=== PATIENT | male | born 1995 | race Two or more races ===

== ENCOUNTER 2019-11-03 20:09 | Inpatient (IN) | payer MEDICAID ==
[~2019-11-03] VITALS: Ht 162.6 cm; Wt 89.2 kg
[2019-11-03 22:31] LABS: EOSINOPHILS % (AUTO) 1.4 % (1.0-6.0); LYMPHOCYTES # (AUTO) 3.6 K/uL (1.0-4.8); MONOCYTES % (AUTO) 6.6 % (2.0-9.0); RED CELL DISTRIBUTION WIDTH 13.4 % (11.5-14.5)
[2019-11-03 22:37] LABS: ANION GAP 9 mmol/L (8-16); BASOPHILS % (AUTO) 0.5 % (0.0-2.0); CARBON DIOXIDE 27 mmol/L (22-29); CHLORIDE 105 mmol/L (98-107); CREATININE 0.96 mg/dL (0.60-1.30); GLOMERULAR FILTR. RATE CALC > 60 mL/min (>60); GLUCOSE,RANDOM 127 mg/dL (70-110); HEMOGLOBIN 15.9 g/dL (13.5-17.5); LYMPHOCYTES % (AUTO) 36.3 % (22.0-44.0); MEAN CORPUSCULAR HEMOGLOBIN 28.6 pg (26.0-34.0); MEAN CORPUSCULAR HGB CONC 33.8 G/dL (31.0-37.0); MEAN CORPUSCULAR VOLUME 85 fL (80-100); MONOCYTES # (AUTO) 0.7 K/uL (0.1-1.0); NEUTROPHILS # (AUTO) 5.5 K/uL (1.8-7.7); NEUTROPHILS % (AUTO) 55.2 % (40.0-70.0); PLATELET COUNT (AUTO) 313 K/uL (150-450); POTASSIUM 3.6 mmol/L (3.5-5.1); RED BLOOD CELL COUNT(AUTO) 5.55 MIL/uL (4.50-5.90); SODIUM SERUM 141 mmol/L (136-145); UREA NITROGEN, BLOOD 11 mg/dL (7-18)
[2019-11-03 22:43] LABS: ALANINE AMINOTRANSFERASE 25 U/L (12-78); ALBUMIN 4.4 g/dL (3.4-5.0); ALKALINE PHOSPHATASE 69 U/L (46-116); ASPARTATE AMINOTRANSFERASE 16 U/L (15-37); BILIRUBIN,TOTAL 0.4 mg/dL (0.1-1.0); TOTAL PROTEIN, SERUM 7.5 g/dL (6.4-8.2)
[2019-11-04] MEDS ORDERED: HALOPERIDOL 5 MG TABLET PO PRN (00:15)
[2019-11-04] MEDS ORDERED: ZOLPIDEM TARTRATE 10 MG TABLET PO PRN (00:15)
[2019-11-04] MEDS ORDERED: LORazepam 2 MG TABLET PO PRN (00:15)
[2019-11-04] MEDS ORDERED: NICOTINE 14 MG/24 HOUR PATCH TD PRN (09:00)
[2019-11-04] MEDS ORDERED: IBUPROFEN 400 MG TABLET PO PRN (09:00)
[2019-11-04] MEDS ORDERED: ALBUTEROL SULFATE HFA 90 MCG/PUFF 8 GM INHALER IH PRN (09:00)
[2019-11-04] MEDS ORDERED: ONDANSETRON HCL 4 MG TABLET PO PRN (09:00)
[2019-11-04] MEDS ORDERED: MAG HYDROX/AL HYDROX/SIMETH ES 30 ML SUSPENSION UDCUP PO PRN (09:00)
[2019-11-04] MEDS ORDERED: PETROLATUM,WHITE 28 GM JELLY TP PRN (09:00)
[2019-11-04] MEDS ORDERED: GuaiFENesin/D-METHORPHAN [SUGAR-FREE] 200-20MG/10 ML SYRUP UDCUP PO PRN (09:00)
[2019-11-04] MEDS ORDERED: MAGNESIUM HYDROXIDE SUSPENSION 30 ML UDCUP PO PRN (09:00)
[2019-11-04] MEDS ORDERED: ACETAMINOPHEN 325 MG TABLET PO PRN (09:00)
[2019-11-04] MEDS ORDERED: DOCUSATE SODIUM 100 MG CAPSULE PO PRN (09:00)
[2019-11-04] MEDS ORDERED: CloNIDine HCL 0.1 MG TABLET PO PRN (09:00)
[2019-11-04] MEDS ORDERED: LOPERAMIDE HCL 2 MG CAPSULE PO PRN (09:00)
[2019-11-04 09:28] LABS: APPEARANCE,URINE CLOUDY (CLEAR); BILIRUBIN,URINE NEGATIVE (NEGATIVE); GLUCOSE, URINE (UA) NEGATIVE (NEGATIVE); KETONES,URINE NEGATIVE (NEGATIVE); LEUKOCYTE ESTERASE ,URINE NEGATIVE (NEGATIVE); NITRATE,URINE NEGATIVE (NEGATIVE); OCCULT BLOOD,URINE NEGATIVE (NEGATIVE); PH,URINE 6.5 (5.0-8.0); PROTEIN,URINE NEGATIVE (NEGATIVE); UROBILINOGEN,URINE 0.2 mg/dL (<=1.0)
[2019-11-04 09:39] LABS: AMPHET/METH SCREEN,URINE NEGATIVE (NEGATIVE); BARBITURATE SCREEN, URINE NEGATIVE (NEGATIVE); BENZODIAZEPINES SCREEN,URINE NEGATIVE (NEGATIVE); CANNABINOID SCREEN,URINE NEGATIVE (NEGATIVE); COCAINE SCREEN,URINE NEGATIVE (NEGATIVE); METHADONE SCREEN, URINE NEGATIVE (NEGATIVE); OPIATE SCREEN,URINE NEGATIVE (NEGATIVE)
[2019-11-04 09:47] LABS: PHENCYCLIDINE SCREEN,URINE NEGATIVE (NEGATIVE)
[2019-11-04 11:44] VITALS: BP 112/74
[2019-11-04 16:39] VITALS: BP 110/59
[2019-11-05 07:37] LABS: CHOL/HDL RATIO 4.4 (4.2-7.3)
[2019-11-05 09:09] VITALS: BP 130/69
[2019-11-05 16:57] VITALS: BP 122/61
[2019-11-05] MEDS: QUEtiapine FUMARATE 100 MG TABLET PO SCH (20:21)
[2019-11-06] MEDS: FLUoxetine HCL 20 MG CAPSULE PO SCH (08:26)
[2019-11-06 09:55] VITALS: BP 137/86
[2019-11-06] MEDS: QUEtiapine FUMARATE 100 MG TABLET PO SCH (20:15)
[2019-11-06 22:14] VITALS: BP 126/73
[2019-11-07] MEDS: FLUoxetine HCL 20 MG CAPSULE PO SCH (09:01)
[2019-11-07 09:26] VITALS: BP 122/72
[2019-11-07 17:12] VITALS: BP 111/70
[2019-11-07] MEDS: QUEtiapine FUMARATE 100 MG TABLET PO SCH (20:20)
[2019-11-08 09:17] VITALS: BP 129/64
[2019-11-08] MEDS: FLUoxetine HCL 20 MG CAPSULE PO SCH (09:25)
[2019-11-08 17:28] VITALS: BP 131/65
[2019-11-08] MEDS: QUEtiapine FUMARATE 100 MG TABLET PO SCH (21:06)
[2019-11-09 09:16] VITALS: BP 118/86
[2019-11-09] MEDS: FLUoxetine HCL 20 MG CAPSULE PO SCH (09:38)
[2019-11-09 19:39] VITALS: BP 116/80
[2019-11-09] MEDS: QUEtiapine FUMARATE 100 MG TABLET PO SCH (20:43)
[2019-11-10] MEDS: FLUoxetine HCL 20 MG CAPSULE PO SCH (09:08)
[2019-11-10 09:37] VITALS: BP 116/91
[2019-11-10] MEDS ORDERED: FLUO-191 PO (10:31)
[2019-11-10] MEDS ORDERED: QUET100T PO (10:32)
== END 2019-11-10 11:10 | disposition home or self-care (01) | DRG 885 ==
LOC: EMS 20:13 → 3EI 11-04 11:13 → 3EX 11-04 11:28 → 3EI 11-04 16:44
PROVIDERS: ADMIT Psychiatry & Neurology Psychiatry; ATTEND Psychiatry & Neurology Psychiatry
DX: F25.1 Schizoaffective disorder, depressive type (principal); R45.851 Suicidal ideations; Z59.0 Homelessness; Z91.5 Personal history of self-harm; I10 Essential (primary) hypertension; E78.5 Hyperlipidemia, unspecified; R10.13 Epigastric pain; F41.9 Anxiety disorder, unspecified
CPT/HCPCS: G0480